=== PATIENT | female | born 1980 | race Caucasian/White ===

== ENCOUNTER 2021-04-05 17:17 | Emergency (ER) | payer OTHER ==
[~2021-04-05] VITALS: Ht 165.1 cm; Wt 104.5 kg
[2021-04-05 17:17] VITALS: BP 158/92
[2021-04-05] MEDS ORDERED: ACET-897 PO (17:24)
[2021-04-05] MEDS ORDERED: KETOROLAC 60MG 2ML VIAL IM ONE (18:05)
[2021-04-05] MEDS ORDERED: KETOROLAC 30 MG/ML 1ML VIAL As Ordered ONE (18:07)
[2021-04-05] MEDS ORDERED: CLIN150C15 PO (18:07)
[2021-04-05] MEDS ORDERED: CLINDAMYCIN 150MG CAPSULE PO ONE (18:30)
== END 2021-04-05 18:36 | disposition home or self-care (01) ==
LOC: M ED 17:17
DX: K04.7 Periapical abscess without sinus (principal); K08.89 Other specified disorders of teeth and supporting structures
CPT/HCPCS: 96372; 99282; J1885

== ENCOUNTER 2021-04-26 21:10 | Emergency (ER) | payer OTHER ==
[~2021-04-26] VITALS: Ht 165.1 cm; Wt 102.4 kg
[~2021-04-26 21:10] MED LIST: ACET-897 PO; CLIN150C15 PO
[2021-04-26] MEDS ORDERED: MOTR200T44 PO (21:21)
[2021-04-26] MEDS ORDERED: AUGM875T28 PO (23:11)
[2021-04-26] MEDS ORDERED: AUGMENTIN 875 MG TAB PO ONE (23:15)
[2021-04-26 23:30] VITALS: BP 123/70
== END 2021-04-26 23:34 | disposition home or self-care (01) ==
LOC: M ED 21:10
DX: K04.7 Periapical abscess without sinus (principal); F31.9 Bipolar disorder, unspecified; Z79.1 Long term (current) use of non-steroidal anti-inflammatories (NSAID)

== ENCOUNTER 2021-08-25 22:37 | Emergency (ER) | payer OTHER ==
[~2021-08-25] VITALS: Ht 165.1 cm; Wt 98.8 kg
[~2021-08-25 22:37] MED LIST changes: +AUGM875T28 PO; -CLIN150C15 PO; +CLIN150C17 PO; +MOTR200T44 PO
[2021-08-25 22:43] VITALS: BP 139/82
== END 2021-08-26 02:39 | disposition left against medical advice (07) ==
LOC: M ED 22:37
DX: Z53.21 Procedure and treatment not carried out due to patient leaving prior to being seen by health care provider (principal)

== ENCOUNTER → 2022-12-08 | Outpatient (REF) | payer OTHER ==
[2022-12-08 13:03] LABS: BASO % 0.3 % (0.0-1.0); EOS # 0.4 10^3/uL (0.0-0.5); HEMATOCRIT 45.7 % (36.0-47.0); HEMOGLOBIN 15.3 g/dl (12.0-15.5); LYMPH # 2.4 10^3/uL (1.5-5.0); LYMPH % 16.6 % (24.0-44.0); MEAN CORPUSCULAR HEMOGLOBIN 29.6 pg (27.0-33.0); MEAN CORPUSCULAR HGB CONC 33.5 g/dl (32.0-36.5); MEAN CORPUSCULAR VOLUME 88.4 fl (80.0-96.0); MONO # 0.7 10^3/uL (0.0-0.8); MONO % 4.9 % (2.0-8.0); NEUTROPHILS # 10.6 10^3/uL (1.5-8.5); NEUTROPHILS % 74.8 % (36.0-66.0); PLATELET COUNT, AUTOMATED 316 10^3/uL (150-450); RED BLOOD COUNT 5.17 10^6/uL (4.00-5.40); WHITE BLOOD COUNT 14.1 10^3/uL (4.0-10.0)
[2022-12-08 13:25] LABS: ALBUMIN 3.7 G/DL (3.2-5.2); ALKALINE PHOSPHATASE 120 U/L (46-116); ALT/SGPT 21 U/L (7.0-40); AST/SGOT 15 U/L (<34); BILIRUBIN,TOTAL 0.5 MG/DL (0.3-1.2); BLOOD UREA NITROGEN 11 MG/DL (9-23); CALCIUM LEVEL 9.3 MG/DL (8.5-10.1); CARBON DIOXIDE LEVEL 27 MMOL/L (20-31); CHLORIDE LEVEL 101 MMOL/L (98-107); CHOLESTEROL LEVEL 189 MG/DL (<200); CHOLESTEROL RISK RATIO 4.71 (<5); CREATININE FOR GFR 0.68 MG/DL (0.55-1.30); GLOMERULAR FILTRATION RATE > 60.0 (>58); GLUCOSE, FASTING 92 MG/DL (60-100); HDL CHOLESTEROL 40.1 MG/DL (>40); LDL CHOLESTEROL 134.3 MG/DL (<100); NON-HDL-C 149 MG/DL; POTASSIUM SERUM 4.4 MMOL/L (3.5-5.1); SODIUM LEVEL 136 MMOL/L (136-145); TRIGLYCERIDES LEVEL 73 MG/DL (<150)
== END ==
LOC: M LAB REF 12:17
PROVIDERS: ATTEND Nurse Practitioner Family
DX: Z13.228 Encounter for screening for other metabolic disorders (principal)

== ENCOUNTER 2023-06-27 01:42 | Emergency (ER) | payer OTHER ==
[~2023-06-27] VITALS: Ht 165.1 cm; Wt 93.5 kg
[2023-06-27 03:54] LABS: APPEARANCE, URINE HAZY (CLEAR); BACTERIA, URINE AUTO NEGATIVE (NEGATIVE); BILIRUBIN, URINE AUTO NEGATIVE (NEGATIVE); BLOOD, URINE BLOOD 3+ (NEGATIVE); COLOR, URINE YELLOW (YELLOW); GLUCOSE, URINE (UA) AUTO NEGATIVE (NEGATIVE); KETONE, URINE AUTO NEGATIVE (NEGATIVE); LEUKOCYTE ESTERASE, URINE AUTO TRACE (NEGATIVE); MUCUS, URINE SMALL (NEGATIVE); NITRITE, URINE AUTO NEGATIVE (NEGATIVE); PROTEIN, URINE AUTO NEGATIVE (NEGATIVE); RBC, URINE AUTO 1 /HPF (0-3); SPECIFIC GRAVITY URINE AUTO 1.021 (1.002-1.035); SQUAMOUS EPITHELIAL CELL UR AU 2 /HPF (0-6); UROBILINOGEN, URINE AUTO 0.2 mg/dL (0.0-2.0); WBC, URINE AUTO 2 /HPF (0-3)
[2023-06-27 04:04] VITALS: BP 142/74; TEMP 97.8; O2SAT 98
[2023-06-27] MEDS ORDERED: NAPR-837 PO (04:45)
[2023-06-27] MEDS ORDERED: CYCL5TAB PO (04:45)
[2023-06-27] MEDS ORDERED: KETOROLAC 60MG 2ML VIAL IM ONE (05:00)
== END 2023-06-27 04:53 | disposition home or self-care (01) ==
LOC: M ED 01:42
DX: M54.50 Low back pain, unspecified (principal); F17.200 Nicotine dependence, unspecified, uncomplicated; F12.10 Cannabis abuse, uncomplicated; Z79.1 Long term (current) use of non-steroidal anti-inflammatories (NSAID); Z79.899 Other long term (current) drug therapy
CPT/HCPCS: 81001; 96372; 99283; J1885